=== PATIENT | male | born 1940 | race Caucasian/White ===

== ENCOUNTER → 2020-07-02 10:30 | Outpatient (CLI) | payer MEDICARE, SELFPAY ==
[2020-06-18 13:11] VITALS: BMI 30.9
--- NOTE | 2020-07-02 10:33 | ECHOCS_ITS ---
Version 3 Reason For Study: CAD Procedure This was a 2D Doppler, Color Flow transthoracic echocardiogram. The study was technically difficult. Contrast injection was performed. Exam performed in department. Left Ventricle Normal LV size. The estimated ejection fraction is 47 %. Mild to moderate segmental systolic dysfunction (see wall motion). Infero-Basal: Akinetic. Mid-inferoseptal : Akinetic. Basal inferoseptal: Severely Hypokinetic. The rest of the wall segments are normal. Right Ventricle Normal RV size. Normal systolic function. Atria The left atrium is moderately enlarged. The right atrium is moderately enlarged. Mitral Valve There is mild mitral annular calcification. Mild (1+) eccentric mitral valve insufficiency. Tricuspid Valve Normal tricuspid valve. Mild tricuspid valve insufficiency. Aortic Valve Trisinus/trileaflet aortic valve. Mild focal aortic valve calcification. Great Vessels Normal aortic root. The pulmonary artery is normal size. Pericardium/Pleural No pericardial effusion. Medication 22 gauge I.V. with prn adaptor inserted into left arm. Diluted definity 7.0ml given slow IV push to enhance endocardial definition. MMode/2D Measurements & Calculations LVIDd: 4.5 cm IVSd: 0.74 cm LVOT diam: 2.2 cm RVDd: 4.4 cm LVPWd: 0.70 cm LVOT area: 3.8 cm2 Ao root diam: 3.2 cm LAV(MOD-bp): 105.3 ml LA A4 area: 30.4 cm2 LAV(MOD-bp) Indexed: 46.8 ml/m2 LAV(MOD-sp2): 98.2 ml LAV(MOD-sp4): 99.9 ml LA dimension(2D): 4.8 cm RA A4 area: 27.5 cm2 Time Measurements MV dec time: 0.21 sec Doppler Measurements & Calculations MV E max dipti: 113.2 cm/sec Ao V2 max: 130.6 cm/sec LV V1 max: 62.3 cm/sec Ao max P.8 mmHg LV V1 max P.6 mmHg JUSTICE(V,D): 1.8 cm2 TR max dipti: 219.0 cm/sec TR max P.2 mmHg ECHO/Echo Complete W/ Contrast Interpretation Summary Normal LV size. The estimated ejection fraction is 47 %. Mild to moderate segmental systolic dysfunction (see wall motion). Contrast injection was performed. Ordering Physician: Connor Carlin Referring Physician: SHAUN SLADE Performed By: Radha Priest, NIRMAL, RVT
== END ==
PROVIDERS: PCP Family Medicine; Referring Provider Internal Medicine Cardiovascular Disease; Visit Provider Internal Medicine Cardiovascular Disease
DX: I25.10 Atherosclerotic heart disease of native coronary artery without angina pectoris (principal)
CPT/HCPCS: 93306; Q9957; A4216; C8929

== ENCOUNTER → 2021-01-08 15:06 | Outpatient (CLI) | payer MEDICARE, SELFPAY ==
[2021-01-08 16:17] LABS: AST(SGOT) 23 U/L (15-37); Alanine Aminotransfer ALT/SGPT 35 U/L (16-61); Albumin, Serum 4.1 g/dL (3.2-5.0); Alkaline Phosphatase 88 U/L (45-117); Bilirubin, Direct 0.37 mg/dL (0.00-0.30); Cholesterol 133 mg/dL (200); Globulin 3.6 g/dL (2.2-4.2); High Density Lipoprotein 31 mg/dL; Protein, Total 7.7 g/dL (6.4-8.2); Triglycerides 164 mg/dL; Very Low Density Lipoprotein 33 mg/dL (5-40)
== END ==
PROVIDERS: PCP Family Medicine; Visit Provider Physician Assistant Medical
DX: E78.5 Hyperlipidemia, unspecified (principal); I25.10 Atherosclerotic heart disease of native coronary artery without angina pectoris; I25.5 Ischemic cardiomyopathy; I48.11 Longstanding persistent atrial fibrillation
CPT/HCPCS: 36415; 80061; 80076